=== PATIENT | female | born 1970 | race Caucasian/White ===

== ENCOUNTER → 2020-01-18 | Outpatient (CLI) | payer OTHER ==
[2020-01-18 15:27] LABS: ABSOLUTE NEUTROPHILS 3.7 thou/uL (1.4-8.2); BASOPHILS 0.5 % (0.0-2.0); EOSINOPHILS 1.6 % (0.0-3.0); HEMATOCRIT 40.3 % (37.0-47.0); LYMPHOCYTES 35.9 % (24.0-44.0); MCH 33.1 pg (26.0-34.0); MCHC 34.6 g/dL (28.0-37.0); MCV 95.5 fL (80.0-100.0); PLATELET COUNT 367 thou/uL (150-400); RBC 4.22 mil/uL (4.20-5.00); RDW 12.4 % (10.5-14.5); WBC 6.9 thou/uL (4.0-11.0)
[2020-01-18 15:31] LABS: URINE BILIRUBIN NEGATIVE (Negative); URINE BLOOD NEGATIVE (Negative); URINE CLARITY CLEAR; URINE COLOR YELLOW; URINE GLUCOSE-RANDOM* NEGATIVE (Negative); URINE KETONES NEGATIVE (Negative); URINE LEUKOCYTES-REFLEX NEGATIVE (Negative); URINE NITRITE-REFLEX NEGATIVE (Negative); URINE PROTEIN (DIPSTICK) NEGATIVE (Negative); URINE UROBILINOGEN 0.2 E.U./dl (0.2-1.0)
[2020-01-18 15:57] LABS: ANION GAP 9 mmol/L (7-16); BUN 13 mg/dL (7-18); CALCIUM 9.4 mg/dL (8.5-10.1); CHLORIDE 101 mmol/L (98-107); CHOLESTEROL 210 mg/dL (<200); CO2 29 mmol/L (21-32); CREATININE 0.8 mg/dL (0.6-1.0); GLUCOSE 94 mg/dL (74-106); HDL CHOLESTEROL 86 mg/dL (>40); LDL CHOLESTEROL 112 mg/dL (<100); POTASSIUM 3.6 mmol/L (3.5-5.1); SGOT 22 U/L (15-37); SGPT 31 U/L (30-65); SODIUM 139 mmol/L (136-145); TC:HDL 2.4 Ratio (Not establshd); TOTAL BILIRUBIN 0.4 mg/dL (0.2-1.0); TOTAL PROTEIN 8.5 g/dL (6.4-8.2); TRIGLYCERIDE 61 mg/dL (<150); VLDL 12 mg/dL (<40)
[2020-01-18 16:16] LABS: ALBUMIN 4.8 g/dL (3.4-5.0)
== END ==
LOC: LAB 14:26
PROVIDERS: ATTEND Neuromusculoskeletal Medicine & OMM
DX: E55.9 Vitamin D deficiency, unspecified (principal); H93.A1 Pulsatile tinnitus, right ear; R10.84 Generalized abdominal pain; J30.89 Other allergic rhinitis; R53.82 Chronic fatigue, unspecified; N32.81 Overactive bladder

== ENCOUNTER → 2020-01-20 | Outpatient (CLI) | payer OTHER | LOC: CAT 08:11 | PROVIDERS: ATTEND Neuromusculoskeletal Medicine & OMM | DX: R19.5 Other fecal abnormalities (principal) ==